=== PATIENT | male | born 1950 | race Caucasian/White ===

== ENCOUNTER → 2019-07-25 10:36 | Outpatient (BNVA) | payer MEDICARE, MEDICAID, SELFPAY | PROVIDERS: Family Provider Family Medicine; PCP Family Medicine; Visit Provider Family Medicine | DX: R89.9 Unspecified abnormal finding in specimens from other organs, systems and tissues (principal); R79.89 Other specified abnormal findings of blood chemistry | CPT/HCPCS: 80053; 85025 ==

== ENCOUNTER → 2020-01-29 12:05 | Outpatient (BNVA) | payer MEDICARE, MEDICAID, SELFPAY | PROVIDERS: Family Provider Family Medicine; PCP Family Medicine; Visit Provider Family Medicine | DX: M12.811 Other specific arthropathies, not elsewhere classified, right shoulder (principal); I10 Essential (primary) hypertension | CPT/HCPCS: 80053; 85025 ==

== ENCOUNTER → 2021-03-04 15:11 | Outpatient (BNVA) | payer MEDICARE, MEDICAID, SELFPAY | PROVIDERS: Family Provider Family Medicine; PCP Family Medicine; Visit Provider Family Medicine | DX: Z00.00 Encounter for general adult medical examination without abnormal findings (principal); I10 Essential (primary) hypertension | CPT/HCPCS: 80053; 85025 ==

== ENCOUNTER → 2021-04-21 15:01 | Outpatient (BNVA) | payer MEDICARE, MEDICAID, SELFPAY | PROVIDERS: Family Provider Family Medicine; PCP Family Medicine; Visit Provider Family Medicine | DX: I10 Essential (primary) hypertension (principal); G89.4 Chronic pain syndrome | CPT/HCPCS: 80048 ==

== ENCOUNTER → 2021-08-20 11:45 | Outpatient (BNVA) | payer MEDICARE, MEDICAID, SELFPAY | PROVIDERS: Family Provider Family Medicine; PCP Family Medicine; Visit Provider Family Medicine | DX: I10 Essential (primary) hypertension (principal); N19 Unspecified kidney failure | CPT/HCPCS: 80048 ==

== ENCOUNTER 2021-09-11 13:58 | Outpatient (CLI) | payer MEDICARE, MEDICAID, SELFPAY ==
--- NOTE | 2021-09-11 14:30 | US_ITS ---
WS: [id number] RENAL ULTRASOUND HISTORY: essential hypertension/renal failure/nephrology recommendation COMPARISON: None available. TECHNIQUE: 2-D and color Doppler imaging of the kidney submitted. Right kidney: 10.4 cm x 4.3 cm x 3.4 cm. Normal echogenicity with no hydronephrosis or mass. There is a very small cyst in the mid renal pelvi s measuring 1.1 x 1.2 x 0.9 cm. No solid mass. Left kidney: 9.9 cm x 6.5 cm x 4.2 cm. Normal echogenicity with no hydronephrosis or mass. Aorta: Ectatic mildly atherosclerotic aorta. Urinary Bladder: Nondistended bladder. US/US renal BI* [id number] IMPRESSION: 1. No hydronephrosis or solid renal mass. 2. Nondistended urinary bladder. 3. Mild atherosclerosis aorta.
== END 2021-09-11 13:59 | disposition home or self-care (01) ==
LOC: RAD 14:02
PROVIDERS: Family Provider Family Medicine; PCP Family Medicine; Visit Provider Family Medicine
DX: N18.32 Chronic kidney disease, stage 3b (principal); I10 Essential (primary) hypertension; N28.1 Cyst of kidney, acquired; I70.0 Atherosclerosis of aorta
CPT/HCPCS: 76770

== ENCOUNTER → 2021-12-29 13:59 | Outpatient (BNVA) | payer MEDICARE, MEDICAID, SELFPAY | PROVIDERS: Family Provider Family Medicine; PCP Family Medicine; Visit Provider Family Medicine | DX: N19 Unspecified kidney failure (principal) | CPT/HCPCS: 80048 ==

== ENCOUNTER 2022-01-21 15:27 | Outpatient (CLI) | payer MEDICARE, MEDICAID, SELFPAY ==
[2022-01-21 16:55] LABS: Bilirubin Urine Neg (Negative); Blood Urine 2+ (Negative); Glucose Urine UA Norm (Normal); Ketones Urine Negative (Negative); Leukocyte Esterase Urine Negative (Negative); Nitrate Urine Negative (Negative); Protein Urine 1+ (Negative); RBC Urine 0-4 /hpf (0-2); Squamous Epithelial Cell Urine 0-4 /hpf (0-5); Urine Appearance Clear (CLEAR); Urine Color Yellow (Yellow); Urobilinogen Urine Norm (Negative); WBC Urine 0-4 /hpf (0-5); pH Urine 5 (5-7)
[2022-01-21 16:56] LABS: Add Urine Culture? No
[2022-01-21 17:28] LABS: Creatinine Urine, Random 154 mg/dL (39-259)
[2022-01-22 13:12] LABS: KAPPA/LAMBDA LIGHT CHAINS FREE 1.86 (0.26-1.65)
[2022-01-22 15:49] LABS: ALBUMIN 4.5 g/dL (3.8-4.8); ALPHA 1 GLOBULIN 0.3 g/dL (0.2-0.3); ALPHA 2 GLOBULIN 0.7 g/dL (0.5-0.9); BETA 1 GLOBULIN 0.4 g/dL (0.4-0.6); BETA 2 GLOBULIN 0.3 g/dL (0.2-0.5); GAMMA GLOBULIN 0.8 g/dL (0.8-1.7)
== END 2022-01-21 15:28 | disposition home or self-care (01) ==
LOC: LAB 15:30
PROVIDERS: PCP Family Medicine; Visit Provider Internal Medicine Nephrology
DX: N18.4 Chronic kidney disease, stage 4 (severe) (principal); I10 Essential (primary) hypertension; Z79.899 Other long term (current) drug therapy
CPT/HCPCS: 81001; 82575; 83883; 84155; 84165

== ENCOUNTER 2022-02-17 11:46 | Outpatient (CLI) | payer MEDICARE, MEDICAID, SELFPAY ==
[2022-02-17 12:57] LABS: Creatinine Urine, Random 167 mg/dL (39-259); Microalbumin Random Urine 25 ug/dL (0-20)
[2022-02-17 12:58] LABS: Glucose Urine UA Norm (Normal); Microalbum Creatinine Ratio Ur 150 mg/dL (0-20); Protein Urine 1+ (Negative); Specific Gravity, Urine 1.015 (1.005-1.030); Urine Appearance Clear (CLEAR); Urine Color Yellow (Yellow); pH Urine 5 (5-7)
[2022-02-17 12:59] LABS: Add Urine Culture? No; Bacteria Urine TRACE /hpf; Bilirubin Urine Neg (Negative); Blood Urine Neg (Negative); Ketones Urine Negative (Negative); Leukocyte Esterase Urine Negative (Negative); Nitrate Urine Negative (Negative); RBC Urine 0-4 /hpf (0-2); Squamous Epithelial Cell Urine RARE /hpf (0-5); Urobilinogen Urine Norm (Negative); WBC Urine 0-4 /hpf (0-5)
[2022-02-17 13:03] LABS: Complement C3 126 mg/dL (90-180)
[2022-02-18 13:18] LABS: COMPLEMENT, TOTAL (CH50) 44 U/mL (31-60)
[2022-02-18 14:23] LABS: COMPLEMENT COMPONENT C3C 138 mg/dL (82-185); COMPLEMENT COMPONENT C4C 33 mg/dL (15-53)
[2022-02-18 14:57] LABS: ANA SCREEN, IFA NEGATIVE (NEGATIVE)
[2022-02-18 15:08] LABS: THYROID PEROXIDASE ANTIBODIES 1 IU/mL (<9)
[2022-02-19 18:27] LABS: CENTROMERE B ANTIBODY <1.0 NEG AI (<1.0 NEG); JO-1 ANTIBODY <1.0 NEG AI (<1.0 NEG); RNP ANTIBODY <1.0 NEG AI (<1.0 NEG); SCL-70 ANTIBODY <1.0 NEG AI (<1.0 NEG); SJOGREN'S ANTIBODY (SS-A) <1.0 NEG AI (<1.0 NEG); SM ANTIBODY <1.0 NEG AI (<1.0 NEG); SS-B <1.0 NEG AI (<1.0 NEG)
[2022-02-20 14:41] LABS: DNA AB (DS) CRITHIDIA,IFA NEGATIVE (NEGATIVE)
[2022-02-23 21:34] LABS: Myeloperoxidase Antibody <1.0 AI (<1.0)
[2022-02-25 14:23] LABS: ANCA Screen Negative (Negative)
== END 2022-02-17 11:47 | disposition home or self-care (01) ==
LOC: LAB 11:59
PROVIDERS: PCP Family Medicine; Visit Provider Registered Nurse
DX: R31.9 Hematuria, unspecified (principal); R80.9 Proteinuria, unspecified
CPT/HCPCS: 36415; 81001; 82044; 86021; 86036; 86160; 86162; 86235; 86255; 86376

== ENCOUNTER 2022-03-03 14:01 | Outpatient (CLI) | payer MEDICARE, MEDICAID, SELFPAY ==
[2022-03-04 12:27] LABS: KAPPA LIGHT CHAIN, FREE, SERUM 36.6 mg/L (3.3-19.4); KAPPA/LAMBDA LIGHT CHAINS FREE 1.71 (0.26-1.65); LAMBDA LIGHT CHAIN, FREE, SERU 21.4 mg/L (5.7-26.3)
== END 2022-03-03 14:02 | disposition home or self-care (01) ==
LOC: LAB 14:06
PROVIDERS: PCP Family Medicine; Visit Provider Registered Nurse
DX: N18.32 Chronic kidney disease, stage 3b (principal); R80.9 Proteinuria, unspecified; R31.9 Hematuria, unspecified
CPT/HCPCS: 83883

== ENCOUNTER → 2022-09-10 12:48 | Outpatient (BNVA) | payer MEDICARE, MEDICAID, SELFPAY | PROVIDERS: PCP Family Medicine; Visit Provider Family Medicine | DX: N19 Unspecified kidney failure (principal); I10 Essential (primary) hypertension | CPT/HCPCS: 80053; 85025 ==

== ENCOUNTER → 2022-12-14 15:48 | Outpatient (BNVA) | payer MEDICARE, MEDICAID, SELFPAY | PROVIDERS: PCP Family Medicine; Visit Provider Family Medicine | DX: N19 Unspecified kidney failure (principal); I10 Essential (primary) hypertension | CPT/HCPCS: 80048 ==

== ENCOUNTER → 2023-06-14 14:48 | Outpatient (BNVA) | payer MEDICARE, MEDICAID, SELFPAY | PROVIDERS: PCP Family Medicine; Visit Provider Family Medicine | DX: I10 Essential (primary) hypertension (principal); N18.2 Chronic kidney disease, stage 2 (mild); M51.16 Intervertebral disc disorders with radiculopathy, lumbar region; D64.9 Anemia, unspecified; Z79.899 Other long term (current) drug therapy | CPT/HCPCS: 80053; 85025 ==

== ENCOUNTER 2023-06-22 12:19 | Oncology outpatient (recurring) (ONCR) | payer MEDICARE, MEDICAID, SELFPAY ==
[2023-06-16 12:45] LABS: Basophils % 0.1 %; Eosinophils # 0.1 10^3/uL (0.0-0.8); Eosinophils % 0.9 %; Lymphocytes # 0.8 10^3/uL (0.8-4.8); Lymphocytes % 9.9 %; Mean Corpuscular HGB Conc 28.5 g/dL (30-55); Mean Corpuscular Hemoglobin 21.2 pg (27-33); Mean Corpuscular Volume 74.2 fl (82-101); Mean Platelet Volume 9.6 fL (7.4-10.4); Monocytes # 0.9 10^3/uL (0.2-0.9); Monocytes % 11.5 %; Neutrophils # 6.24 10^3/uL (1.8-7.7); Neutrophils % 76.6 %; Nucleated Red Blood Cells % 0 %; Platelet Count 238 10^3/cmm (157-399); Red Cell Distribution Width 15.9 % (12.1-15.1); White Blood Count 8.15 10^3/uL (3.29-11.43)
[2023-06-16 13:20] LABS: Hematocrit 19.3 % (37-53)
[2023-06-16 14:34] VITALS: PULSE 141; RESP 16; TEMP 36.6; O2SAT 96
[2023-06-16 14:50] VITALS: BP 150/59; PULSE 98; RESP 16; TEMP 36.8; O2SAT 96
[2023-06-16 15:05] VITALS: BP 174/69; PULSE 64; RESP 16; TEMP 36.8; O2SAT 98
[2023-06-16 16:30] VITALS: BP 178/60; PULSE 78; RESP 16; TEMP 36.7; O2SAT 98
[2023-06-16 16:45] VITALS: BP 178/60; PULSE 78; RESP 16; TEMP 36.7; O2SAT 98
[2023-06-22 12:34] LABS: Hematocrit 23.4 % (37-53); Mean Corpuscular HGB Conc 28.6 g/dL (30-55); Mean Corpuscular Hemoglobin 21.9 pg (27-33); Mean Corpuscular Volume 76.5 fl (82-101); Mean Platelet Volume 9.2 fL (7.4-10.4); Platelet Count 198 10^3/cmm (157-399); Red Blood Count 3.06 10^6/uL (3.85-5.65); Red Cell Distribution Width 17.9 % (12.1-15.1); White Blood Count 5.49 10^3/uL (3.29-11.43)
[2023-06-22] MEDS: sodium chloride 0.9% 250 mL Bag IV (14:13)
[2023-06-22 14:21] VITALS: BP 160/71; PULSE 72; RESP 17; TEMP 36.7; O2SAT 98
[2023-06-22 14:36] VITALS: BP 154/59; PULSE 74; RESP 16; TEMP 37.1; O2SAT 97
[2023-06-22 14:51] VITALS: BP 170/73; PULSE 65; RESP 16; TEMP 36.2; O2SAT 97
[2023-06-22 15:21] VITALS: BP 161/69; PULSE 73; RESP 16; TEMP 37.1; O2SAT 98
[2023-06-22 16:19] VITALS: BP 164/66; PULSE 70; RESP 16; TEMP 37.2; O2SAT 98
== END 2023-07-08 23:59 | disposition home or self-care (01) ==
PROVIDERS: PCP Family Medicine; Visit Provider Family Medicine
DX: D64.9 Anemia, unspecified (principal); Z53.9 Procedure and treatment not carried out, unspecified reason
CPT/HCPCS: 36430; 85025; 85027; 86850; 86900; 86920; J7050; P9016

== ENCOUNTER 2023-09-27 16:01 | Outpatient (CLI) | payer MEDICARE, MEDICAID, SELFPAY ==
--- NOTE | 2023-09-27 16:04 | XRR_ITS ---
PROCEDURE INFORMATION: Exam: XR Left Hip Exam date and time: 09/27/2023 4:15 PM Age: 73 years old Clinical indication: Hip pain; Left hip; Patient HX: L leg pain from hip down x 3 yrs; Additional info: Continued back and left hip pain TECHNIQUE: Imaging protocol: Radiologic exam of the left hip. Views: 2 or 3 views hip with pelvis when performed. COMPARISON: CR XR lumbar spine 2-3V* [id number] 09/27/2023 4:15 PM FINDINGS: Bones/joints: Mild -moderate osteoarthritis without evidence of fracture or subluxation. Sacrum and coccyx are partially obscured by bowel gas/stool. Soft tissues: No gross soft tissue abnormality. XR/XR hip LT 2-3V wo/w pel* [id number] IMPRESSION: 1. Osteoarthritis without evidence of fracture or subluxation. If there is concern for labral, muscle or tendon pathology, follow-up outpatient MRI may be helpful.
--- NOTE | 2023-09-27 16:04 | XRR_ITS ---
PROCEDURE INFORMATION: Exam: XR Lumbosacral Spine Exam date and time: 09/27/2023 4:15 PM Age: 73 years old Clinical indication: Low back pain; Patient HX: L leg pain from hip down x 3 yrs; Additional info: Worsening pain back and left hip TECHNIQUE: Imaging protocol: Radiologic exam of the lumbosacral spine. Views: 2 or 3 views. COMPARISON: CR XR hip LT 2-3V wo/w pel* [id number] 09/27/2023 4:15 PM FINDINGS: Bones/joints: Moderate-severe multilevel spondylosis of the lumbar spine with facet arthrosis, osteophytosis and endplate degeneration. No evidence of acute fracture or subluxation. 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 The sacrum and coccyx are partially obscured by bowel gas/stool. Soft tissues: Grossly unremarkable. XR/XR lumbar spine 2-3V* [id number] IMPRESSION: 1. Multilevel spondylosis without evidence of acute fracture or subluxation of the lumbar spine. Consider correlation with follow-up outpatient MRI to evaluate for neural impingement.
== END 2023-09-27 16:02 | disposition home or self-care (01) ==
LOC: RAD 16:03
PROVIDERS: PCP Family Medicine; Visit Provider Family Medicine
DX: M16.12 Unilateral primary osteoarthritis, left hip (principal); M51.36 Other intervertebral disc degeneration, lumbar region; M25.78 Osteophyte, vertebrae; M47.816 Spondylosis without myelopathy or radiculopathy, lumbar region; M48.26 Kissing spine, lumbar region
CPT/HCPCS: 72100; 73502; 80048; 85025

== ENCOUNTER 2023-10-14 12:00 | Oncology outpatient (recurring) (ONCR) | payer MEDICARE, MEDICAID, SELFPAY ==
[2023-10-12 14:15] VITALS: BP 151/58; PULSE 68; RESP 18; TEMP 36.4; O2SAT 97
[2023-10-12 14:30] VITALS: BP 146/65; PULSE 73; RESP 18; TEMP 36.1; O2SAT 97
[2023-10-12 14:35] VITALS: BP 146/64; PULSE 71; RESP 18; TEMP 36.4; O2SAT 97
[2023-10-12 14:50] VITALS: BP 163/60; PULSE 63; RESP 18; TEMP 36.3; O2SAT 95
[2023-10-12 15:10] VITALS: BP 162/63; PULSE 66; RESP 18; TEMP 36.4; O2SAT 95
[2023-10-12 16:45] VITALS: BP 165/68; PULSE 72; RESP 18; TEMP 36.4; O2SAT 96
[2023-10-14 13:03] VITALS: BP 122/78; BP 160/65; PULSE 68; PULSE 87; RESP 18; TEMP 36.3; TEMP 36.6; O2SAT 97; O2SAT 98
[2023-10-14 13:18] VITALS: BP 156/62; PULSE 75; RESP 18; TEMP 36.8; O2SAT 99
[2023-10-14 13:33] VITALS: BP 158/55; PULSE 74; RESP 18; TEMP 36.6; O2SAT 98
[2023-10-14 14:00] VITALS: BP 153/62; PULSE 65; RESP 17; TEMP 36.5; O2SAT 96
[2023-10-14 14:55] VITALS: BP 149/78; PULSE 68; RESP 18; TEMP 36.4; O2SAT 96
== END 2023-11-07 23:59 | disposition home or self-care (01) ==
PROVIDERS: PCP Family Medicine; Visit Provider Family Medicine
DX: Z53.9 Procedure and treatment not carried out, unspecified reason (principal); D64.9 Anemia, unspecified
CPT/HCPCS: 36430; 86850; 86900; 86920; P9040

== ENCOUNTER → 2023-12-29 12:12 | Outpatient (BNVA) | payer MEDICARE, MEDICAID, SELFPAY | PROVIDERS: PCP Family Medicine; Visit Provider Surgery | DX: D64.9 Anemia, unspecified (principal); R63.4 Abnormal weight loss | CPT/HCPCS: 36415; 85025; 99204 ==

== ENCOUNTER 2024-02-01 10:57 | Day surgery (SDC) | payer MEDICARE, MEDICAID, SELFPAY ==
[2024-02-01 11:24] VITALS: BP 177/73; PULSE 72; RESP 17; TEMP 36.1; O2SAT 98; BMI 26.6
[2024-02-01] MEDS: sodium chloride 0.9% 1,000 ML 30 ML IV (11:48)
--- NOTE | 2024-02-01 12:02 | ANES.PREANE2 ---
Pre-Anesthetic Assessment Height/Weight: Height 1.63 m Weight 70.307 kg Temp Pulse Resp BP Pulse Ox O2 Del Method 97.0 F L 72 17 177/73 98 Room Air 02/01/24 11:24 02/01/24 11:24 02/01/24 11:24 02/01/24 11:24 02/01/24 11:24 02/01/24 11:24 Operation Date: 02/01/24 12:30 Proposed Procedures p Colonoscopy(Not Applicable) - Blair Beaver MD s EGD - 21650, 45827,D64.9(Not Applicable) - Blair Beaver MD Familial anesthetic complications: None Was Beta Shakeel taken within 24 hours: N/A Was Clonidine taken within 24 hours: N/A Last intake: Intake Last Liquid Date 01/31/24 Last Liquid Time 23:30 Last Solid Date 01/30/24 Last Solid Time 18:00 Social No alcohol and No tobacco formers moekr Exam alert, oriented x 3, clear to auscultation bilaterally and regular rate & rhythm Airway Mallampati: Class II Dentition: false CV/HEM Hypertension Anesthetic Plan ASA status: 3 Anesthesia: MAC Risk of > 500 ml blood loss (7ml/kg in children): No Medications/Allergies Home Medications Medication Instructions Recorded Confirmed Last Taken Type albuterol sulfate 90 mcg/actuation 1 puff inhalation QID #8.5 grams 09/14/22 02/01/24 Unknown Rx aerosol inhaler (ProAir HFA) tramadol 50 mg tablet 50 mg PO .4 times daily 30 days 12/20/23 02/01/24 01/31/24 Rx #120 tabs amlodipine 10 mg tablet 10 mg PO DAILY 01/27/24 02/01/24 01/31/24 History Allergies Allergy/AdvReac Type Severity Reaction Status Date / Time No Known Allergies Allergy Verified 01/27/24 14:02 Current Medications Generic Name Dose Route Start Last Admin Trade Name Freq PRN Reason Stop Dose Admin Sodium Chloride 1,000 mls @ 30 mls/hr 02/01/24 11:30 02/01/24 11:48 Sodium Chloride 0.9% IV 02/02/24 11:29 30 mls/hr .Q24H ANTONY Administration PFSH Anesthesia Medical History Severe anemia Lumbar disc disease with radiculopathy Chronic pain syndrome History of osteoarthritis Hypertension Rotator cuff arthropathy of right shoulder Social History Smoking and tobacco/nicotine status: former use of tobacco/nicotine Alcohol intake: current Alcohol intake frequency: holidays/special occasions only Substance/Drug Use: never Data Anesthesia Cardiac Studies: No Data to Display
--- NOTE | 2024-02-01 12:04 | W.PM.OPSFHP ---
Same Day Surgery H&P Indication for Procedure/HPI DATE OF PROCEDURE: February 01, 2024 CHIEF COMPLAINT/INDICATIONFOR SURGICAL PROCEDURE: anemia PREOP DIAGNOSIS: anemia PLANNED PROCEDURE: Operation Date: 02/01/24 12:30 Proposed Procedures p Colonoscopy(Not Applicable) - Blair Beaver MD s EGD - 45653, 99830,D64.9(Not Applicable) - Blair Beaver MD Medications/Allergies* Home Medications Medication Instructions Recorded Confirmed Type amlodipine 10 mg tablet 10 mg PO DAILY 01/27/24 02/01/24 History Allergies/Adverse Reactions Allergy/AdvReac Type Severity Reaction Status Date / Time No Known Allergies Allergy Verified 01/27/24 14:02 Current Medications: Generic Name Dose Route Start Last Admin Trade Name Freq PRN Reason Stop Dose Admin Sodium Chloride 1,000 mls @ 30 mls/hr 02/01/24 11:30 02/01/24 11:48 Sodium Chloride 0.9% IV 02/02/24 11:29 30 mls/hr .Q24H ANTONY Administration Pertinent History/Comorbid Conditions* Medical History (Updated 10/07/23 @ 14:39 by Becky Tabor MD) Severe anemia Lumbar disc disease with radiculopathy Chronic pain syndrome History of osteoarthritis Hypertension Rotator cuff arthropathy of right shoulder Social History Smoking and tobacco/nicotine status: former use of tobacco/nicotine Alcohol intake: current Alcohol intake frequency: holidays/special occasions only Substance/Drug Use: never Pertinent Exam Findings alert, oriented x 3, clear to auscultation bilaterally and regular rate & rhythm Recommendations Surgery/Procedure today Coding Level of Care Code Acute Code for Chg Fwd
[2024-02-01 12:59] VITALS: BP 152/77; PULSE 58; RESP 18; TEMP 36.1; O2SAT 100
[2024-02-01 13:16] VITALS: BP 170/79; PULSE 60; RESP 18; O2SAT 100
--- NOTE | 2024-02-01 13:29 | ANE.PACU2 ---
Inpatient post-anesthesia follow up: Airway intact: Yes Vital signs: Temperature 97 F Pulse Rate 60 Respiratory Rate 18 Blood Pressure 170/79 Pulse Oximetry 100 Oxygen Delivery Me thod Room Air Oxygen Flow Rate Fraction of Inspir ed Oxygen Hydration adequate: Yes Nausea and vomiting: No Pain level: 1 Mental status: Baseline
== END 2024-02-01 13:45 | disposition home or self-care (01) ==
PROVIDERS: PCP Family Medicine; Visit Provider Surgery
PROC: 0DJD8ZZ Inspection of Lower Intestinal Tract, Via Natural or Artificial Opening Endoscopic (ICD-10-PCS; CPT 45378; principal; 2024-02-01 12:30)
PROC: 0DJ08ZZ Inspection of Upper Intestinal Tract, Via Natural or Artificial Opening Endoscopic (ICD-10-PCS; CPT 43235; 2024-02-01 12:30)
DX: D50.9 Iron deficiency anemia, unspecified (principal); C18.2 Malignant neoplasm of ascending colon; I10 Essential (primary) hypertension; Z87.891 Personal history of nicotine dependence; K29.50 Unspecified chronic gastritis without bleeding; D12.5 Benign neoplasm of sigmoid colon
CPT/HCPCS: 43239; 45380; 45381; 45385; 88305; J2704; J7030

== ENCOUNTER 2024-02-16 14:17 | Outpatient (CLI) | payer MEDICARE, MEDICAID, SELFPAY ==
--- NOTE | 2024-02-16 15:25 | CTR_ITS ---
PROCEDURE INFORMATION: Exam: CT Chest Without Contrast; Diagnostic Exam date and time: 02/16/2024 3:23 PM Age: 73 years old Clinical indication: Condition or disease; Other: Colon cancer; Initial oncological staging assessment; Patient HX: Colonoscopy showed mass in the ascending colon that was biopsied and positive for adenocarcinoma of colon. TECHNIQUE: Imaging protocol: Diagnostic computed tomography of the chest without contrast. Radiation optimization: All CT scans at this facility use at least one of these dose optimization techniques: automated exposure control; mA and/or kV adjustment per patient size (includes targeted exams where dose is matched to clinical indication); or iterative reconstruction. COMPARISON: CR XR chest 2V* [id number] 02/16/2019 12:35 PM RADIATION DOSE METRICS: Total DLP (mGy-cm): 572.66 FINDINGS: Lungs: Unremarkable. No consolidation. No masses. Pleural spaces: Unremarkable. No pneumothorax. No pleural effusion. Heart: Heart size is normal. There is trace pericardial fluid. Lymph nodes: There are multiple small mediastinal lymph nodes. No enlarged nodes are appreciated. Vasculature: The thoracic aorta is normal in caliber. There is calcified plaque involving the aorta and coronary vessels. Bones/joints: Unremarkable. No acute fracture. Soft tissues: Unremarkable. PROCEDURE INFORMATION: Exam: CT Abdomen And Pelvis Without Contrast Exam date and time: 02/16/2024 3:23 PM Age: 73 years old Clinical indication: Condition or disease; Other: Colon cancer; Initial oncological staging assessment; Patient HX: Colonoscopy showed mass in the ascending colon that was biopsied and positive for adenocarcinoma of colon. TECHNIQUE: Imaging protocol: Computed tomography of the abdomen and pelvis without contrast. Radiation optimization: All CT scans at this facility use at least one of these dose optimization techniques: automated exposure control; mA and/or kV adjustment per patient size (includes targeted exams where dose is matched to clinical indication); or iterative reconstruction. COMPARISON: CR XR hip LT 2-3V wo/w pel* [id number] 09/27/2023 4:15 PM RADIATION DOSE METRICS: Total DLP (mGy-cm): 572.66 FINDINGS: Lungs: Lung bases are clear as visualized. Liver: Normal. No mass. Gallbladder and biliary ducts: Normal. No calcified stones. No ductal dilation. Pancreas: Normal. No ductal dilation. Spleen: The spleen is slightly enlarged measuring 13 cm in maximal dimension. Adrenal glands: Normal. No mass. Kidneys and ureters: Normal. No hydronephrosis. Stomach and bowel: There is wall thickening involving the ascending colon just distal to the cecum likely representing patient's known colon cancer. No dilated loops of large or small bowel is appreciated. No bowel wall thickening is otherwise noted. Appendix: The appendix is not definitely identified. Intraperitoneal space: Unremarkable. No free air. No significant fluid collection. Vasculature: There is aneurysmal dilatation involving the aorta which measures 3.7 cm in maximal dimension. There is calcified plaque involving the aorta and its branch vessels. Lymph nodes: No enlarged retroperitoneal lymph nodes are appreciated. There are a few small sub cm pericecal lymph nodes. No enlarged nodes are appreciated. Urinary bladder: Unremarkable as visualized. Reproductive: Unremarkable as visualized. Bones/joints: Unremarkable. No acute fracture. Soft tissues: There is a small fat filled periumbilical hernia. CT/[place] [id number] IMPRESSION: 1. Multiple small mediastinal lymph nodes. No enlarged nodes are appreciated. IMPRESSION: 1. Wall thickening involving the ascending colon just distal to the cecum likely representing patient's known colon cancer. There are small adjacent lymph nodes. No enlarged nodes are appreciated. 2. Aneurysmal dilatation involving the abdominal aorta which measures 3.7 cm in maximal dimension. 3. Please see above comments for additional details.
[2024-02-16] MEDS: iohexol 350 mg/mL 500 mL Btl (per mL) PO (15:27)
== END 2024-02-16 14:18 | disposition home or self-care (01) ==
LOC: RAD 14:17
PROVIDERS: PCP Family Medicine; Visit Provider Surgery
DX: C18.2 Malignant neoplasm of ascending colon (principal)
CPT/HCPCS: 36415; 71250; 74176; 80048; 82378; 85025; 99215

== ENCOUNTER 2024-12-01 11:12 | Outpatient (CLI) | payer MEDICARE, MEDICAID, SELFPAY ==
--- NOTE | 2024-12-01 11:30 | PETR_ITS ---
PROCEDURE INFORMATION: Exam: PET/CT Skull Base to Mid-thigh Exam date and time: 12/01/2024 12:57 PM Age: 74 years old Clinical indication: Initial staging of colon cancer. Adenocarcinoma in the ascending colon found in February 2024. LABS AND CLINICAL REPORTS: Glucose: 109 mg/dl Treatment strategy for malignancy (PET staging): Initial Staging (PI) TECHNIQUE: Imaging protocol: Following at least four-hour fasting and following the injection of radiopharmaceutical, low dose CT images were obtained. Then, PET images were obtained. Attenuation corrected images were constructed using the CT scan. Fused images of PET and CT were reviewed. The standardized uptake values (SUV) reported below are maximum values within a region of interest, expressed in gm/ml. Exam includes orbital meatal line to mid-thigh. SUV normalization method: BodyWeight Radiopharmaceutical: 10.51 mCi F-18 FDG (Fluorodeoxyglucose), IV. Time of imaging post radiopharmaceutical administration: 72 minutes Injection site: LEFT AC COMPARISON: [place] [id number] 02/16/2024 3:23 PM FINDINGS: Brain: On the nondedicated limited brain images there is no abnormal distribution of the radiotracer in the ayala and white matter. Pharynx: Normal distribution of the radiotracer in nasopharyngeal, and oropharyngeal structures. Larynx: Normal distribution of the radiotracer in laryngeal structures. Lungs, pleura and trachea: No abnormal uptake. No suspicious lung nodules or masses. 6 mm calcified granuloma in the lingula. No pleural effusion. Heart: Normal physiologic uptake. There is no cardiomegaly. Coronary artery calcification is present. There is no pericardial effusion. Mediastinal space: See below in lymph nodes . Liver: Normal size without abnormal radiotracer uptake. Gallbladder and biliary ducts: No abnormal uptake. Pancreas: Normal distribution of radiotracer. Spleen: Normal size without abnormal radiotracer uptake. The spleen is mildly enlarged (13.3 cm). Adrenal glands: No abnormal uptake. No nodules. Kidneys and ureters: Normal physiologic uptake. No hydronephrosis. Stomach and bowel: Segment of wall thickening up to 9 mm in the proximal ascending colon immediately above the ileocecal valve noted as area of known primary colon cancer on prior CT abdomen pelvis on 02/16/2024 corresponds to mild focal wall thickening noted on series 202 image [id number]. There is non masslike increased uptake of 12.6 SUV in this area which is not significantly higher than multiple other areas of long segmental uptake in the small bowel loops and in the left colon measuring up to 11.2 SUV suggestive of benign findings. There is no abnormal dilatation of the bowel. Vasculature: No abnormal uptake. There is 3.7 cm non ruptured infrarenal abdominal aortic aneurysm Lymph nodes: Mildly increased uptake of 3.4 SUV within normal size mediastinal and bilateral hilar lymph nodes is likely benign. Increased uptake within normal size bilateral superficial inguinal lymph nodes measuring 4 SUV on the right side and 3.5 SUV on the left side is probably benign. No FDG avid lymphadenopathy in the head, neck, abdomen, pelvis, and the axillas. Skeleton: Increased uptake of 5.2 SUV within subtle sclerotic focus in the costochondral junction of the left 6 rib is suggestive of late subacute/early chronic fracture. This finding is new since the prior exam on 02/16/2024. Soft tissues: No abnormal uptake in the visualized head, neck, chest, abdomen, pelvis, and extremities. METRICS: Mediastinal blood pool maximal uptake is 1.9 SUV. Liver maximal uptake is 2.6 SUV. PET/PET skull to thigh INIT [id number] IMPRESSION: Multiple areas of increased uptake in the left and right colon and in the small bowel compatible with benign finding. Nonobstructive segment of wall thickening in the ascending colon presumably harboring known primary malignancy is only slightly hypermetabolic in comparison with the uptake in the segments described above. No FDG avid mesenteric lymph nodes. No evidence of distant metastatic disease. Mildly increased uptake within normal size mediastinal, bilateral hilar and bilateral inguinal lymph nodes is likely benign reactive in nature. Focal increased uptake in the costochondral junction of the left 6 rib is suggestive of late subacute/early chronic fracture, new finding since 02/16/2024.
== END 2024-12-01 11:13 | disposition home or self-care (01) ==
LOC: RAD 11:12
PROVIDERS: PCP Family Medicine; Visit Provider Family Medicine
DX: C18.2 Malignant neoplasm of ascending colon (principal)
CPT/HCPCS: 78815; A9552